=== PATIENT | male | born 1995 | race Caucasian/White ===

== ENCOUNTER 2021-03-22 19:06 | Emergency (ER) | payer SELFPAY ==
[~2021-03-22] VITALS: Ht 182.9 cm; Wt 107.8 kg
--- NOTE | 2021-03-22 19:21 | ED EENT ---
History of Present Illness General Chief Complaint: Dental Problems/Pain Stated Complaint: TOOTH PAIN ON RT SIDE History of Present Illness Date Seen by Provider: Mar 22, 2021 Time Seen by Provider: 19:20 Initial Comments 25-year-old male presents with pain in his right upper back molar. He reports that a couple days ago he fractured his tooth. Now he has quite a bit of pain and some swelling concerned of infection in the area. Patient has not seen a dentist. Patient denies any fevers or chills. Reports no other systemic complaints Allergies and Home Medications Allergies Coded Allergies: No Known Drug Allergies (Unverified , 03/22/21) Patient Home Medication List Home Medication List Reviewed: Yes Amoxicillin (Amoxicillin) 500 Mg Capsule, 500 MG PO TID Prescribed by: MIGUEL A GAFFNEY on 03/22/211927 Hydrocodone/Acetaminophen (Hydrocodone-Acetamin 5-325 mg) 1 Each Tablet, 1 TAB PO Q12H PRN for PAIN-MODERATE (5-7) Prescribed by: MIGUEL A GAFFNEY on 03/22/211928 Review of Systems Review of Systems Constitutional: No chills, No fever Eyes: No Symptoms Reported Ears: No Symptoms Reported Nose: no symptoms reported Mouth: see HPI Throat: no symptoms reported Respiratory: no symptoms reported Cardiovascular: no symptoms reported Gastrointestinal: no symptoms reported Physical Exam Vital Signs Vital Signs - First Documented 03/22/21 19:15 Temp 36.5 Pulse 64 Resp 18 B/P (MAP) 153/76 (101) O2 Delivery Room Air Height, Weight, BMI Height: '" Weight: lbs. oz. kg; BMI Method: General Appearance: mild distress Eyes: bilateral eye normal inspection Nose: normal inspection Mouth/Throat: dental tenderness, other (Fractured tooth, right upper molar with gum erythema consistent with dental infection) Neck: full range of motion, supple Cardiovascular: normal peripheral pulses, regular rate, rhythm Respiratory: lungs clear, normal breath sounds Gastrointestinal: non tender, soft Neurologic/Psychiatric: alert, normal mood/affect, oriented x 3 Skin: normal color, warm/dry Progress/Results/Core Measures Results/Orders My Orders Orders - MIGUEL A GAFFNEY DO Ketorolac Injection (Toradol Injection) (03/22/21 19:23) Ceftriaxone (Rocephin) (03/22/21 19:30) Lidocaine 1% Inj 20 Ml (Xylocaine 1% Inj (03/22/21 19:30) Medications Given in ED Current Medications Medications Dose Ordered Sig/Leigha Route Start Time Stop Time Status Last Admin Dose Admin Ceftriaxone Sodium 1,000 mg ONCE ONCE IM 03/22/21 19:30 03/22/21 19:31 DC 03/22/21 19:40 1,000 MG Lidocaine HCl 2.1 ml ONCE ONCE INJ 03/22/21 19:30 03/22/21 19:31 DC 03/22/21 19:40 2.1 ML Vital Signs/I&O 03/22/21 19:15 Temp 36.5 Pulse 64 Resp 18 B/P (MAP) 153/76 (101) O2 Delivery Room Air Departure Impression Primary Impression: Dental infection Additional Impression: Fractured tooth Qualified Codes: S02.5XXA - Fracture of tooth (traumatic), initial encounter for closed fracture Disposition: HOME, SELF-CARE Condition: Stable Departure-Patient Inst. Referrals: NO,LOCAL PHYSICIAN (PCP/Family) Primary Care Physician Patient Instructions: Fractured Tooth, Tooth Abscess ED Add. Discharge Instructions: Please follow-up with a dentist as soon as possible for further outpatient management All discharge instructions reviewed with patient and/or family. Voiced understanding. Scripts Hydrocodone/Acetaminophen (Hydrocodone-Acetamin 5-325 mg) 1 Each Tablet 1 TAB PO Q12H PRN for PAIN-MODERATE (5-7), #10 TAB Prov: MIGUEL A GAFFNEY DO 03/22/21 Amoxicillin (Amoxicillin) 500 Mg Capsule 500 MG PO TID, #21 CAP 0 Refills Prov: MIGUEL A GAFFNEY DO 03/22/21 Work/School Note: Work Release Form Date Seen in the Emergency Department: Mar 22, 2021 Return to Work: Mar 24, 2021 MIGUEL A GAFFNEY DO Mar 22, 2021 19:20
[2021-03-22] MEDS ORDERED: KETOROLAC 60 MG/2 ML VIAL IM STA (19:23)
[2021-03-22] MEDS ORDERED: AMOX500C2 PO (19:28)
[2021-03-22] MEDS ORDERED: ACHD5005 PO (19:28)
[2021-03-22] MEDS ORDERED: cefTRIAXone 1,000 MG VIAL IM ONE (19:30)
[2021-03-22] MEDS ORDERED: LIDOCAINE 1% INJ 20 ML 20 ML VIAL INJ ONE (19:30)
[2021-03-22 19:48] VITALS: BP 142/80
== END 2021-03-22 19:48 | disposition home or self-care (01) ==
LOC: EDUNIT# 19:06 → ER FS 19:07
DX: S02.5XXA Fracture of tooth (traumatic), initial encounter for closed fracture (principal); K04.7 Periapical abscess without sinus; X58.XXXA Exposure to other specified factors, initial encounter
CPT/HCPCS: 99284

== ENCOUNTER 2021-05-01 17:44 | Emergency (ER) | payer SELFPAY ==
[~2021-05-01] VITALS: Ht 182.9 cm; Wt 90.7 kg
[~2021-05-01 17:44] MED LIST: ACHD5005 PO; AMOX500C2 PO
--- NOTE | 2021-05-01 17:59 | ED EENT ---
History of Present Illness General Stated Complaint: RT SIDE TOOTH/GUM PAIN History of Present Illness Date Seen by Provider: May 01, 2021 Time Seen by Provider: 17:53 Initial Comments 25-year-old male presents with right-sided dental pain in his right upper molar. Patient has a severely decayed tooth/fractured tooth. Patient was seen here on 03/22/2021 for the exact same tooth that was infected. Patient reports he got better after the antibiotic but has returned again today. Patient has not been seen by dentist since his previous visit. Allergies and Home Medications Allergies Coded Allergies: No Known Drug Allergies (Unverified , 03/22/21) Patient Home Medication List Home Medication List Reviewed: Yes Amoxicillin (Amoxicillin) 500 Mg Capsule, 500 MG PO TID Prescribed by: MIGUEL A GAFFNEY on 03/22/211927 Clindamycin HCl (Clindamycin HCl) 300 Mg Capsule, 300 MG PO TID Prescribed by: MIGUEL A GAFFNEY on 05/01/211802 Hydrocodone/Acetaminophen (Hydrocodone-Acetamin 5-325 mg) 1 Each Tablet, 1 TAB PO Q12H PRN for PAIN-MODERATE (5-7) Prescribed by: MIGUEL A GAFFNEY on 03/22/211928 Review of Systems Review of Systems Constitutional: No chills, No fever Mouth: see HPI Respiratory: no symptoms reported Cardiovascular: no symptoms reported Gastrointestinal: no symptoms reported Musculoskeletal: no symptoms reported Skin: no symptoms reported Neurological: No Symptoms Reported Physical Exam Vital Signs Vital Signs - First Documented 05/01/21 17:53 Temp 37.1 Pulse 63 Resp 17 B/P (MAP) 174/107 (129) O2 Delivery Room Air Height, Weight, BMI Height: '" Weight: lbs. oz. kg; 32.00 BMI Method: General Appearance: mild distress Mouth/Throat: other (Severe dental caries on the last molar right upper with some mild gum erythema) Cardiovascular: regular rate, rhythm Respiratory: no respiratory distress, no accessory muscle use Neurologic/Psychiatric: alert, oriented x 3 Skin: normal color, warm/dry Progress/Results/Core Measures Results/Orders Vital Signs/I&O 05/01/21 17:53 Temp 37.1 Pulse 63 Resp 17 B/P (MAP) 174/107 (129) O2 Delivery Room Air Progress Progress Note : Progress Note Discussed with patient that he needs to see a dentist for definitive care I did encourage he follow-up with [facility] since they have a dental program. As I was trying to discuss pain control with patient, he states that "I am not here for pain medicine, I am here for antibiotics" and was very angry as he stated that. Patient was prescribed clindamycin since this is a recurrent infection of the same area. I did discuss with him that dental infections can lead to long-term health issues if he does not get it taken care of and it is important that he follows up with a dental. Departure Impression Primary Impression: Dental infection Disposition: HOME, SELF-CARE Condition: Stable Departure-Patient Inst. Referrals: NO,LOCAL PHYSICIAN (PCP/Family) Primary Care Physician Patient Instructions: Dental Implants (DC), Your Dental Health and Your Medical Health Add. Discharge Instructions: Please follow-up with the dentist as soon as possible. There are dental clinics with decreased rates in [place] or through [facility] clinics Topical lidocaine cream or gel such as Orajel Scripts Clindamycin HCl (Clindamycin HCl) 300 Mg Capsule 300 MG PO TID, #30 CAP Prov: MIGUEL A GAFFNEY DO 05/01/21 MIGUEL A GAFFNEY DO May 01, 2021 17:58
[2021-05-01] MEDS ORDERED: CLIN-144 PO (18:03)
[2021-05-01 18:14] VITALS: BP 147/90
== END 2021-05-01 18:14 | disposition home or self-care (01) ==
LOC: ER FS 17:44 → EDUNIT# 17:44 → ER FS 18:14
DX: K04.7 Periapical abscess without sinus (principal)
CPT/HCPCS: 99281